=== PATIENT | female | born 1970 | race Caucasian/White ===

== ENCOUNTER → 2017-01-18 08:06 | Outpatient (CLI) | payer BC | END | disposition home or self-care (01) | LOC: D.NM 08:06 | DX: M79.671 Pain in right foot (principal) ==

== ENCOUNTER → 2017-07-07 15:57 | Outpatient (CLI) | payer BC | END | disposition home or self-care (01) | LOC: D.RAD 15:57 | DX: J32.9 Chronic sinusitis, unspecified (principal) ==